=== PATIENT | female | born 1995 | race African-American/Black ===

== ENCOUNTER 2017-10-15 15:41 | Observation (INO) | payer MEDICAID ==
[~2017-10-15] VITALS: Ht 160 cm; Wt 80.7 kg
[2017-10-15] MEDS ORDERED: PNV1TABL76 PO (16:16)
== END 2017-10-15 17:20 | disposition home or self-care (01) ==
LOC: L&D 15:41
PROVIDERS: ADMIT Obstetrics & Gynecology; ATTEND Obstetrics & Gynecology
DX: O36.8130 Decreased fetal movements, third trimester, not applicable or unspecified (principal); Z3A.37 37 weeks gestation of pregnancy
CPT/HCPCS: 76815; 76818; 99281; G0378

== ENCOUNTER 2017-10-27 05:45 | Inpatient (IN) | payer MEDICAID ==
[~2017-10-27] VITALS: Ht 160 cm; Wt 80.7 kg
[2017-10-27] MEDS: DEXT 5%/LR + PITOCIN 20UNITS/L 1,000 ML IV SCH (02:13)
[~2017-10-27 05:45] MED LIST: PNV1TABL76 PO
[2017-10-27] MEDS ORDERED: NALOXONE HCL 0.4 MG/ML 1ML VIAL IM PRN (06:45)
[2017-10-27] MEDS ORDERED: METHYLERGONOVINE MALEATE 0.2 MG/ML IM PRN (06:45)
[2017-10-27] MEDS ORDERED: CARBOPROST TROMETHAMINE 250 MCG/ML AMPUL IM PRN (06:45)
[2017-10-27 07:01] LABS: BASOPHILS % 0.4 % (0.0-2.0); EOSINOPHILS % 0.9 % (0.0-5.0); HEMATOCRIT. 30.9 % (36.0-48.0); HEMOGLOBIN. 9.9 g/dL (12.0-16.0); LYMPHOCYTES % 29.5 % (20.0-50.0); MEAN CORPUSCULAR HEMOGLOBIN 25.8 pg (28.0-32.0); MEAN CORPUSCULAR VOLUME 80.8 fL (81.0-99.0); MONOCYTES % 10.2 % (2.0-8.0); PLATELET 121 x1000/uL (130-400); RED BLOOD CELL COUNT 3.83 mill/uL (4.2-5.4); RED CELL DISTRIBUTION WIDTH 18.2 % (11.6-14.6)
[2017-10-27 07:07] LABS: INR 1.1; PARTIAL THROMBOPLASTIN TIME 32.2 sec (23.4-31.0)
[2017-10-27] MEDS: LACTATED RINGERS 1,000 ML IV SCH ×2 (07:12→08:03)
[2017-10-27 07:19] LABS: CLARITY URINE CLOUDY (CLEAR); COLOR URINE YELLOW (YELLOW); KETONES URINE NEGATIVE (NEGATIVE); LEUKOCYTE ESTERASE URINE 3+ (NEGATIVE); NITRITE URINE NEGATIVE (NEGATIVE); OCCULT BLOOD URINE NEGATIVE (NEGATIVE); PROTEIN URINE NEGATIVE (NEGATIVE); SPECIFIC GRAVITY URINE 1.014 (1.005-1.030)
[2017-10-27 08:29] LABS: *AMPHETAMINES SCREEN URINE NEGATIVE (NEGATIVE); *BARBITURATES SCREEN URINE NEGATIVE (NEGATIVE); *BENZODIAZEPINES SCREEN URINE NEGATIVE (NEGATIVE); *COCAINE SCREEN URINE NEGATIVE (NEGATIVE); CANNABINOID URINE SCREEN NEGATIVE (NEGATIVE); METHADONE URINE SCREEN NEGATIVE (NEGATIVE); OPIATES URINE SCREEN NEGATIVE (NEGATIVE); PHENCYCLIDINE URINE SCREEN NEGATIVE (NEGATIVE)
[2017-10-27] MEDS ORDERED: DIPHENHYDRAMINE 50MG/ML VIAL IV PRN (09:30)
[2017-10-27] MEDS ORDERED: LACTATED RINGERS 1,000 ML IV SCH ×2 (09:30→13:00)
[2017-10-27] MEDS ORDERED: ONDANSETRON HCL 4MG/2ML VIAL IV PRN ×2 (09:30)
[2017-10-27] MEDS ORDERED: NALOXONE HCL 0.4 MG/ML 1ML VIAL IV PRN (09:30)
[2017-10-27] MEDS ORDERED: METOCLOPRAMIDE HCL 10MG/2ML VIAL IV PRN (09:30)
[2017-10-27] MEDS ORDERED: FENTANYL CITRATE/PF 50MCG/ML 2ML VIAL IV PRN (09:30)
[2017-10-27] MEDS ORDERED: MEPERIDINE HCL/PF 25MG/ML CPJ IV PRN (09:30)
[2017-10-27] MEDS ORDERED: FENTANYL CITRATE/PF 50MCG/ML 2ML VIAL ONE (10:49)
[2017-10-27] MEDS ORDERED: MORPHINE SULFATE/PF 1MG/ML 10ML AMP ONE (10:49)
[2017-10-27 11:24] LABS: HEPATITIS B SURFACE ANTIGEN NEGATIVE; RUBELLA IGG 16.8 IU/mL (4.99-10)
[2017-10-27] MEDS ORDERED: DEXT 5%/LR + PITOCIN 20UNITS/L 1,000 ML IV SCH (11:55)
[2017-10-27] MEDS ORDERED: RHO(D) IMMUNE GLOBULIN 300 MCG/SYR IM PRN (12:00)
[2017-10-27] MEDS ORDERED: IBUPROFEN 400MG TABLET PO PRN (12:00)
[2017-10-27] MEDS ORDERED: HYDROMORPHONE HCL/PF 2MG/ML CPJ IM PRN (12:00)
[2017-10-27] MEDS ORDERED: CEFAZOLIN SODIUM 1000MG/VIAL ONE (12:26)
[2017-10-27] MEDS ORDERED: KETOROLAC 60MG/2ML VIAL IM ONE (12:26)
[2017-10-27] MEDS ORDERED: PHENYLEPHRINE HCL 10 MG/ML 1ML (IV VIAL) IV ONE (12:26)
[2017-10-27] MEDS ORDERED: ONDANSETRON HCL 4MG/2ML VIAL ONE (12:26)
[2017-10-27] MEDS ORDERED: OXYTOCIN 10 UNITS/ML 1ML ONE (12:26)
[2017-10-27 15:15] VITALS: BP 118/53
[2017-10-27 16:00] VITALS: BP 110/59
[2017-10-27] MEDS: KETOROLAC 30MG/ML VIAL IV SCH ×2 (17:10→22:51)
[2017-10-27] MEDS: DIPHENHYDRAMINE 50MG/ML VIAL IV PRN (17:17)
[2017-10-27 17:35] VITALS: BP 118/80
[2017-10-27 19:15] VITALS: BP 104/62
[2017-10-28] VITALS (7 sets, daily range): BP systolic 105–124; BP diastolic 56–72
[2017-10-28] MEDS: DIPHENHYDRAMINE 50MG/ML VIAL IV PRN ×2 (00:34→05:36)
[2017-10-28] MEDS: DEXT 5%/LR + PITOCIN 20UNITS/L 1,000 ML IV SCH (05:08)
[2017-10-28] MEDS ORDERED: KETOROLAC 30MG/ML VIAL IV SCH (05:15)
[2017-10-28] MEDS: KETOROLAC 30MG/ML VIAL IV SCH (05:36)
[2017-10-28 07:16] LABS: BASOPHILS % 0.1 % (0.0-2.0); EOSINOPHILS % 0.5 % (0.0-5.0); HEMATOCRIT. 26.3 % (36.0-48.0); HEMOGLOBIN. 8.4 g/dL (12.0-16.0); LYMPHOCYTES % 14.9 % (20.0-50.0); MEAN CORPUSCULAR HEMOGLOBIN 25.9 pg (28.0-32.0); MEAN CORPUSCULAR VOLUME 80.9 fL (81.0-99.0); MEAN PLATELET VOLUME 9.9 fl (7.4-10.4); MONOCYTES % 6.8 % (2.0-8.0); NEUTROPHILS % 77.7 % (40.0-76.0); PLATELET 109 x1000/uL (130-400); RED BLOOD CELL COUNT 3.25 mill/uL (4.2-5.4); RED CELL DISTRIBUTION WIDTH 17.9 % (11.6-14.6)
[2017-10-28] MEDS: IBUPROFEN 800MG TABLET PO PRN ×2 (11:56→22:37)
[2017-10-28] MEDS: ACETAMINOPHEN WITH CODEINE 300/30MG TABLET PO PRN (15:14)
[2017-10-29 05:08] VITALS: BP 119/67
[2017-10-29 08:07] VITALS: BP 123/77
[2017-10-29] MEDS: IBUPROFEN 800MG TABLET PO PRN ×3 (08:30→23:51)
[2017-10-29 16:00] VITALS: BP 120/80
[2017-10-29 19:10] VITALS: BP 136/72
[2017-10-29] MEDS: ACETAMINOPHEN WITH CODEINE 300/30MG TABLET PO PRN (19:39)
[2017-10-29] MEDS ORDERED: BISACODYL 5MG TABLET PO PRN (19:45)
[2017-10-29 23:50] VITALS: BP 126/73
[2017-10-30 04:00] VITALS: BP 131/78
[2017-10-30] MEDS: IBUPROFEN 800MG TABLET PO PRN (09:58)
[2017-10-30 10:19] VITALS: BP 128/89
== END 2017-10-30 11:20 | disposition home or self-care (01) | DRG 540 ==
LOC: OBSVTOIN 05:45 → L&D 05:45 → 7EST PP/OB 17:04
PROVIDERS: ADMIT Obstetrics & Gynecology; ATTEND Obstetrics & Gynecology
PROC: 10D00Z1 Extraction of Products of Conception, Low, Open Approach (ICD-10-PCS; principal; 2017-10-27 10:50)
DX: O69.81X0 Labor and delivery complicated by cord around neck, without compression, not applicable or unspecified (principal); D69.6 Thrombocytopenia, unspecified; O34.211 Maternal care for low transverse scar from previous cesarean delivery; O99.02 Anemia complicating childbirth; D64.9 Anemia, unspecified; O99.12 Other diseases of the blood and blood-forming organs and certain disorders involving the immune mechanism complicating childbirth; Z3A.38 38 weeks gestation of pregnancy; Z37.0 Single live birth; Z82.49 Family history of ischemic heart disease and other diseases of the circulatory system
CPT/HCPCS: 36415; 80305; 81001; 85025; 85610; 85730; 86592; 86703; 86762; 86850; 86900; 86920; 87086; 87340; 88307; J0690; J1200; J1885; J2274; J2370; J2405; J2590; J3010; J7120; A4315